=== PATIENT | female | born 1995 | race Two or more races ===

== ENCOUNTER 2023-12-24 19:20 | Emergency (ER) | payer OTHER ==
[~2023-12-24] VITALS: Ht 172.7 cm; Wt 75.0 kg
[2023-12-24 19:30] VITALS: TEMP 98.4
[2023-12-24 20:47] VITALS: BP 115/71; PULSE 54; RESP 16; O2SAT 100
[2023-12-24] MEDS: IBUPROFEN 600 MG TABLET PO ONE (21:38)
[2023-12-24] MEDS: LIDOCAINE 5% TRANSDERMAL PATCH TD ONE (21:38)
[2023-12-24] MEDS: ACETAMINOPHEN 500 MG TABLET PO ONE (21:38)
== END 2023-12-24 21:58 | disposition home or self-care (01) ==
LOC: EMS 19:20
DX: M25.512 Pain in left shoulder (principal); V69.88XA Occupant (driver) (passenger) of heavy transport vehicle injured in other specified transport accidents, initial encounter; Y93.89 Activity, other specified; Y92.89 Other specified places as the place of occurrence of the external cause; Y99.8 Other external cause status
CPT/HCPCS: 99284; 73030-TC; Z7502; Z7610